=== PATIENT | male | born 1970 | race African-American/Black ===

== ENCOUNTER 2018-08-17 09:12 | Inpatient (IN) | payer MEDICAID, OTHER ==
[~2018-08-17] VITALS: Ht 193 cm; Wt 116.6 kg
[2018-08-17] MEDS ORDERED: SODIUM CHLORIDE 0.9% 1,000 ML IV ONE (09:29)
[2018-08-17] MEDS ORDERED: ALBUTEROL (0.083%) 2.5MG/3ML NEB HHN STA (09:29)
[2018-08-17] MEDS ORDERED: IPRATROPIUM BROMIDE (0.02%) 0.5MG/2.5ML NEB HHN STA (09:29)
[2018-08-17] MEDS ORDERED: MAGNESIUM 2 G PREMIX 50 ML IV STA (09:29)
[2018-08-17] MEDS ORDERED: METHYLPREDNISOLONE SOD SUCC 125 MG/2 ML VIAL IV STA (09:29)
[2018-08-17 09:44] LABS: BASOPHILS % 0.7 % (0.0-2.0); EOSINOPHILS % 6.4 % (0.0-5.0); HEMATOCRIT. 46.4 % (42.0-52.0); HEMOGLOBIN. 15.5 g/dL (14.0-18.0); LYMPHOCYTES % 51.5 % (20.0-50.0); MEAN CORPUSCULAR HEMOGLOBIN 29.6 pg (28.0-32.0); MEAN CORPUSCULAR VOLUME 88.4 fL (80.0-94.0); MEAN PLATELET VOLUME 7.7 fl (7.4-10.4); MONOCYTES % 7.7 % (2.0-8.0); NEUTROPHILS % 33.7 % (40.0-76.0); PLATELET 314 x1000/uL (130-400); RED BLOOD CELL COUNT 5.25 mill/uL (4.7-6.1); RED CELL DISTRIBUTION WIDTH 13.5 % (11.6-14.6)
[2018-08-17] MEDS ORDERED: SODIUM CHLORIDE 0.9% 1000ML BAG (SEPSIS BOLUS) IV ONE (09:45)
[2018-08-17 09:53] LABS: PARTIAL THROMBOPLASTIN TIME 23.6 sec (23.4-31.0); PROTHROMBIN TIME 10.2 sec (9.1-11.1)
[2018-08-17 09:54] LABS: CHLORIDE 108 mEq/L (98-107)
[2018-08-17] MEDS ORDERED: LEVOFLOXACIN 750MG PREMIX 150 ML IV ONE (10:30)
[2018-08-17 11:03] LABS: BG BILEVEL POS AIRWAY PRESSURE 15/5; BG CARBOXYHEMOGLOBIN 1.3 % (0.5-1.5); BG DEOXYHEMOGLOBIN 1.2 % (0.0-5.0); BG FRACTION INSPIRED OXYGEN 40; BG HCO3 ACT 25.5 mmol/L (22.0-26.0); BG METHEMOGLOBIN 0.4 % (0.0-1.5); BG OXYGEN SATURATION 98.8 % (92.0-98.5); BG OXYHEMOGLOBIN 97.1 % (94.0-97.0); BG PCO2 54.3 mmHg (35.0-45.0); BG PO2 154.8 mmHg (75.0-100.0); BG SAMPLE SITE RIGHT BRACHIAL; BG TOTAL HEMOGLOBIN 15.1 g/dL (12.0-18.0); BG VENT MODE MASK - BIPAP; BG VENT RATE 16 set
[2018-08-17] MEDS ORDERED: CLONIDINE 0.1MG TABLET PO PRN (16:15)
[2018-08-17] MEDS ORDERED: DOCUSATE SODIUM 100MG CAPSULE PO PRN (16:15)
[2018-08-17] MEDS ORDERED: IPRATROPIUM/ALBUTEROL 0.5-3(2.5)MG/3ML NEB INH PRN (16:15)
[2018-08-17] MEDS ORDERED: HYDROCODONE/ACETAMINOPHEN 5/325MG TABLET PO PRN (16:15)
[2018-08-17] MEDS ORDERED: ACETAMINOPHEN 650MG/20.3ML UDC GT PRN (16:15)
[2018-08-17] MEDS ORDERED: ACETAMINOPHEN 325MG TABLET PO PRN (16:15)
[2018-08-17] MEDS ORDERED: ONDANSETRON HCL 4MG/2ML INJ IV PRN (16:15)
[2018-08-17] MEDS ORDERED: DIPHENHYDRAMINE 50MG/ML VIAL IV PRN (16:15)
[2018-08-17] MEDS ORDERED: NA PHOS,M-B/NA PHOS,DI-BA ENEMA 118ML PR PRN (16:15)
[2018-08-17] MEDS ORDERED: ACETAMINOPHEN 650MG SUPP PR PRN (16:15)
[2018-08-17] MEDS ORDERED: GUAIFENESIN 200MG/10ML SUGAR FREE UDC PO PRN (16:15)
[2018-08-17] MEDS ORDERED: MAGNESIUM/ALUMINUM HYDROXIDE/SIMETHICONE 30ML UDC PO PRN (16:15)
[2018-08-17] MEDS ORDERED: IPRATROPIUM/ALBUTEROL 0.5-3(2.5)MG/3ML NEB HHN SCH (18:00)
[2018-08-17 19:48] LABS: CLARITY URINE CLEAR (CLEAR); COLOR URINE YELLOW (YELLOW); KETONES URINE NEGATIVE (NEGATIVE); LEUKOCYTE ESTERASE URINE NEGATIVE (NEGATIVE); NITRITE URINE NEGATIVE (NEGATIVE); OCCULT BLOOD URINE NEGATIVE (NEGATIVE); PROTEIN URINE NEGATIVE (NEGATIVE); SPECIFIC GRAVITY URINE 1.017 (1.005-1.030); UROBILINOGEN URINE 0.2 E.U./dL (0.2-1.0)
[2018-08-17 20:00] LABS: *BARBITURATES SCREEN URINE NEGATIVE (NEGATIVE); *BENZODIAZEPINES SCREEN URINE NEGATIVE (NEGATIVE); *COCAINE SCREEN URINE NEGATIVE (NEGATIVE); METHADONE URINE SCREEN NEGATIVE (NEGATIVE); OPIATES URINE SCREEN PRESUMTIVE POSITIVE (NEGATIVE)
[2018-08-17 20:01] LABS: *AMPHETAMINES SCREEN URINE NEGATIVE (NEGATIVE); CANNABINOID URINE SCREEN NEGATIVE (NEGATIVE); PHENCYCLIDINE URINE SCREEN NEGATIVE (NEGATIVE)
[2018-08-17] MEDS ORDERED: LORATADINE 10MG TABLET PO SCH (21:00)
[2018-08-17] MEDS ORDERED: ENOXAPARIN 40MG/0.4ML SYR SUBCUT NR (21:15)
[2018-08-17] MEDS ORDERED: METHYLPREDNISOLONE SOD SUCC 40 MG/ML VIAL IV NR (21:15)
[2018-08-17] MEDS ORDERED: MONTELUKAST SODIUM 10MG TABLET PO SCH (21:30)
[2018-08-17] MEDS ORDERED: SODIUM CHLORIDE 0.9% INJ 3ML FLUSH IVF NR (22:45)
[2018-08-17] MEDS ORDERED: FAMOTIDINE 20MG/2ML VIAL IV NR (22:45)
[2018-08-18] VITALS (11 sets, daily range): BP systolic 121–166; BP diastolic 43–98
[2018-08-18] MEDS: IPRATROPIUM/ALBUTEROL 0.5-3(2.5)MG/3ML NEB HHN PRN (02:12)
[2018-08-18 06:41] LABS: BASOPHILS % 0.2 % (0.0-2.0); HEMATOCRIT. 38.8 % (42.0-52.0); HEMOGLOBIN. 13.1 g/dL (14.0-18.0); LYMPHOCYTES % 11.1 % (20.0-50.0); MEAN CORPUSCULAR HEMOGLOBIN 29.4 pg (28.0-32.0); MEAN CORPUSCULAR VOLUME 87.3 fL (80.0-94.0); MEAN PLATELET VOLUME 8.1 fl (7.4-10.4); MONOCYTES % 8.7 % (2.0-8.0); PLATELET 271 x1000/uL (130-400); RED BLOOD CELL COUNT 4.44 mill/uL (4.7-6.1); RED CELL DISTRIBUTION WIDTH 13.3 % (11.6-14.6)
[2018-08-18 07:02] LABS: CHLORIDE 106 mEq/L (98-107)
[2018-08-18 07:10] LABS: LDL CHOLESTEROL 139 mg/dL (5-100)
[2018-08-18 07:11] LABS: HDL CHOLESTEROL 78 mg/dL (40-59)
[2018-08-18] MEDS: METHYLPREDNISOLONE SOD SUCC 40 MG/ML VIAL IV SCH ×3 (07:20→21:39)
[2018-08-18] MEDS: SODIUM CHLORIDE 0.9% INJ 3ML FLUSH IVF SCH ×3 (07:20→22:00)
[2018-08-18] MEDS: IPRATROPIUM/ALBUTEROL 0.5-3(2.5)MG/3ML NEB HHN SCH ×3 (08:11→20:55)
[2018-08-18] MEDS: ENOXAPARIN 30MG/0.3ML SYR SUBCUT SCH ×2 (09:00→21:09)
[2018-08-18] MEDS: FAMOTIDINE 20MG/2ML VIAL IV SCH ×2 (09:44→21:00)
[2018-08-18] MEDS: LORATADINE 10MG TABLET PO SCH (09:45)
[2018-08-18] MEDS: MONTELUKAST SODIUM 10MG TABLET PO SCH (17:55)
[2018-08-19] VITALS (7 sets, daily range): BP systolic 116–148; BP diastolic 54–84
[2018-08-19] MEDS: IPRATROPIUM/ALBUTEROL 0.5-3(2.5)MG/3ML NEB HHN SCH ×3 (02:43→20:13)
[2018-08-19] MEDS: SODIUM CHLORIDE 0.9% INJ 3ML FLUSH IVF SCH ×3 (06:00→22:00)
[2018-08-19] MEDS: METHYLPREDNISOLONE SOD SUCC 40 MG/ML VIAL IV SCH ×3 (06:47→21:00)
[2018-08-19] MEDS: FAMOTIDINE 20MG/2ML VIAL IV SCH ×2 (08:44→21:00)
[2018-08-19] MEDS: LORATADINE 10MG TABLET PO SCH (08:44)
[2018-08-19] MEDS: ENOXAPARIN 30MG/0.3ML SYR SUBCUT SCH ×2 (08:44→21:00)
[2018-08-19] MEDS: IPRATROPIUM/ALBUTEROL 0.5-3(2.5)MG/3ML NEB HHN PRN ×2 (12:50→16:40)
[2018-08-19] MEDS: MONTELUKAST SODIUM 10MG TABLET PO SCH (17:00)
[2018-08-20] MEDS: IPRATROPIUM/ALBUTEROL 0.5-3(2.5)MG/3ML NEB HHN SCH ×3 (01:57→15:03)
[2018-08-20 04:04] VITALS: BP 136/73
[2018-08-20] MEDS: SODIUM CHLORIDE 0.9% INJ 3ML FLUSH IVF SCH ×3 (06:00→14:39)
[2018-08-20 06:25] LABS: BASOPHILS % 0.4 % (0.0-2.0); HEMATOCRIT. 40.3 % (42.0-52.0); HEMOGLOBIN. 13.4 g/dL (14.0-18.0); LYMPHOCYTES % 9.4 % (20.0-50.0); MEAN CORPUSCULAR HEMOGLOBIN 29.4 pg (28.0-32.0); MEAN CORPUSCULAR VOLUME 88.1 fL (80.0-94.0); MEAN PLATELET VOLUME 8.4 fl (7.4-10.4); MONOCYTES % 4.2 % (2.0-8.0); PLATELET 271 x1000/uL (130-400); RED BLOOD CELL COUNT 4.58 mill/uL (4.7-6.1); RED CELL DISTRIBUTION WIDTH 13.6 % (11.6-14.6)
[2018-08-20] MEDS: METHYLPREDNISOLONE SOD SUCC 40 MG/ML VIAL IV SCH (07:26)
[2018-08-20 07:43] LABS: CHLORIDE 104 mEq/L (98-107)
[2018-08-20 08:00] VITALS: BP 147/91
[2018-08-20] MEDS: FAMOTIDINE 20MG/2ML VIAL IV SCH (08:56)
[2018-08-20] MEDS: ENOXAPARIN 30MG/0.3ML SYR SUBCUT SCH ×2 (08:56→09:00)
[2018-08-20] MEDS: LORATADINE 10MG TABLET PO SCH (08:56)
[2018-08-20 12:09] VITALS: BP 150/95
[2018-08-20 15:30] VITALS: BP 136/79
[2018-08-20 15:40] VITALS: BP 136/79
[2018-08-20] MEDS: MONTELUKAST SODIUM 10MG TABLET PO SCH (16:43)
[2018-08-20 20:00] VITALS: BP 135/80
== END 2018-08-20 19:30 | disposition home or self-care (01) | DRG 133 ==
LOC: ER 09:24 → 5EST 10:48 → EDBEDREQTM 10:50 → EDBEDREQ 10:50 → ENRESERVTM 08-18 00:35 → ENRESERVDT 08-18 00:35
PROVIDERS: ADMIT Family Medicine; ATTEND Family Medicine
PROC: 5A09357 Assistance with Respiratory Ventilation, Less than 24 Consecutive Hours, Continuous Positive Airway Pressure (ICD-10-PCS; principal; 2018-08-17)
PROC: 5A09357 Assistance with Respiratory Ventilation, Less than 24 Consecutive Hours, Continuous Positive Airway Pressure (ICD-10-PCS; 2018-08-20)
DX: J96.00 Acute respiratory failure, unspecified whether with hypoxia or hypercapnia (principal); D72.1 Eosinophilia; E87.2 Acidosis; J45.901 Unspecified asthma with (acute) exacerbation; E87.8 Other disorders of electrolyte and fluid balance, not elsewhere classified; E66.9 Obesity, unspecified; R73.9 Hyperglycemia, unspecified; E78.5 Hyperlipidemia, unspecified; T38.0X5A Adverse effect of glucocorticoids and synthetic analogues, initial encounter; Z82.49 Family history of ischemic heart disease and other diseases of the circulatory system; Z83.3 Family history of diabetes mellitus; Z87.891 Personal history of nicotine dependence; Z68.31 Body mass index [BMI] 31.0-31.9, adult; Y92.89 Other specified places as the place of occurrence of the external cause
CPT/HCPCS: 36415; 36600; 71045; 80048; 80061; 80305; 82375; 82805; 82962; 83605; 83880; 84145; 84484; 87804; 93005; 94640; 94660; 96365; 96375; 99291; J1650; J1956; J2920; J2930; J3475; J3490; J7030; J7611; J7620

== ENCOUNTER 2018-08-26 11:04 | Emergency (ER) | payer MEDICAID ==
[~2018-08-26] VITALS: Ht 193 cm; Wt 116.0 kg
[2018-08-26] MEDS ORDERED: SODIUM CHLORIDE 0.9% 1,000 ML IV ONE (11:18)
[2018-08-26] MEDS ORDERED: METHYLPREDNISOLONE SOD SUCC 125 MG/2 ML VIAL IV STA (11:18)
[2018-08-26] MEDS ORDERED: IPRATROPIUM BROMIDE (0.02%) 0.5MG/2.5ML NEB HHN STA (11:18)
[2018-08-26] MEDS ORDERED: ALBUTEROL (0.083%) 2.5MG/3ML NEB HHN STA (11:18)
[2018-08-26] MEDS ORDERED: MAGNESIUM 2 G PREMIX 50 ML IV ONE (11:30)
[2018-08-26 11:55] LABS: BASOPHILS % 0.9 % (0.0-2.0); EOSINOPHILS % 1.8 % (0.0-5.0); HEMATOCRIT. 42.8 % (42.0-52.0); HEMOGLOBIN. 14.5 g/dL (14.0-18.0); MEAN CORPUSCULAR HEMOGLOBIN 29.9 pg (28.0-32.0); MEAN CORPUSCULAR VOLUME 87.8 fL (80.0-94.0); MEAN PLATELET VOLUME 7.5 fl (7.4-10.4); MONOCYTES % 8.8 % (2.0-8.0); NEUTROPHILS % 59.5 % (40.0-76.0); PLATELET 300 x1000/uL (130-400); RED BLOOD CELL COUNT 4.87 mill/uL (4.7-6.1); RED CELL DISTRIBUTION WIDTH 13.7 % (11.6-14.6)
[2018-08-26 12:01] LABS: CHLORIDE 107 mEq/L (98-107)
[2018-08-26 14:00] VITALS: BP 128/81
== END 2018-08-26 14:43 | disposition home or self-care (01) ==
LOC: ER 11:04
DX: J45.901 Unspecified asthma with (acute) exacerbation (principal)
CPT/HCPCS: 36415; 71045; 80053; 84484; 85025; 93005; 94644; 96365; 96375; 99284; J2930; J3475; J7030; J7611

== ENCOUNTER 2018-10-10 22:24 | Emergency (ER) | payer MEDICAID ==
[~2018-10-10] VITALS: Ht 193 cm; Wt 118.0 kg
[2018-10-10] MEDS ORDERED: MAGNESIUM 2 G PREMIX 50 ML IV STA (23:23)
[2018-10-10] MEDS ORDERED: ALBUTEROL (0.083%) 2.5MG/3ML NEB HHN STA (23:23)
[2018-10-10] MEDS ORDERED: IPRATROPIUM BROMIDE (0.02%) 0.5MG/2.5ML NEB HHN STA (23:23)
[2018-10-10] MEDS ORDERED: METHYLPREDNISOLONE SOD SUCC 125 MG/2 ML VIAL IV STA (23:23)
[2018-10-11 02:48] VITALS: BP 135/87
== END 2018-10-11 02:48 | disposition home or self-care (01) ==
LOC: ER 22:24
DX: J45.901 Unspecified asthma with (acute) exacerbation (principal); R51 Headache
CPT/HCPCS: 71045; 96365; 96375; 99285; J2930; J3475; J7611

== ENCOUNTER 2018-10-19 02:48 | Inpatient (IN) | payer OTHER, MEDICAID ==
[2018-10-19] VITALS (8 sets, daily range): BP systolic 127–163; BP diastolic 70–96
[~2018-10-19] VITALS: Ht 193 cm; Wt 114.3 kg
[2018-10-19] MEDS: IPRATROPIUM/ALBUTEROL 0.5-3(2.5)MG/3ML NEB HHN SCH ×3 (01:05→20:18)
[2018-10-19] MEDS ORDERED: METHYLPREDNISOLONE SOD SUCC 125 MG/2 ML VIAL IV STA (03:05)
[2018-10-19] MEDS ORDERED: IPRATROPIUM BROMIDE (0.02%) 0.5MG/2.5ML NEB HHN STA ×2 (03:05→04:08)
[2018-10-19] MEDS ORDERED: SODIUM CHLORIDE 0.9% 1,000 ML IV ONE (03:05)
[2018-10-19] MEDS ORDERED: ONDANSETRON HCL 4MG/2ML INJ IV STA (03:05)
[2018-10-19] MEDS ORDERED: MAGNESIUM 2 G PREMIX 50 ML IV ONE (03:15)
[2018-10-19 03:16] LABS: BASOPHILS % 0.7 % (0.0-2.0); EOSINOPHILS % 10.9 % (0.0-5.0); HEMATOCRIT. 44.2 % (42.0-52.0); HEMOGLOBIN. 14.9 g/dL (14.0-18.0); LYMPHOCYTES % 46.9 % (20.0-50.0); MEAN CORPUSCULAR HEMOGLOBIN 29.8 pg (28.0-32.0); MEAN CORPUSCULAR VOLUME 88.4 fL (80.0-94.0); MEAN PLATELET VOLUME 7.4 fl (7.4-10.4); NEUTROPHILS % 30.5 % (40.0-76.0); PLATELET 318 x1000/uL (130-400); RED CELL DISTRIBUTION WIDTH 14.4 % (11.6-14.6)
[2018-10-19 03:22] LABS: CHLORIDE 107 mEq/L (98-107)
[2018-10-19] MEDS: ALBUTEROL (0.083%) 2.5MG/3ML NEB HHN SCH ×3 (03:30→04:30)
[2018-10-19] MEDS ORDERED: ALBUTEROL (0.083%) 2.5MG/3ML NEB HHN STA (04:08)
[2018-10-19 04:10] LABS: BG BASE EXCESS -3.7 mmol/L (-2.0-2.0); BG DEOXYHEMOGLOBIN 4.6 % (0.0-5.0); BG FRACTION INSPIRED OXYGEN 60; BG HCO3 ACT 24.9 mmol/L (22.0-26.0); BG METHEMOGLOBIN 0.3 % (0.0-1.5); BG OXYGEN SATURATION 95.3 % (92.0-98.5); BG OXYHEMOGLOBIN 94.1 % (94.0-97.0); BG PCO2 60.1 mmHg (35.0-45.0); BG PH 7.235 (7.350-7.450); BG PO2 92.2 mmHg (75.0-100.0); BG SAMPLE SITE RIGHT RADIAL; BG TOTAL HEMOGLOBIN 14.8 g/dL (12.0-18.0); BG VENT MODE MASK - SIMPLE
[2018-10-19] MEDS ORDERED: FLUT1DIS3 INH (12:49)
[2018-10-19] MEDS ORDERED: ALBU4TAB6 INH (12:49)
[2018-10-19] MEDS: METHYLPREDNISOLONE SOD SUCC 125 MG/2 ML VIAL IV SCH ×2 (13:37→21:41)
[2018-10-19] MEDS ORDERED: IPRATROPIUM/ALBUTEROL 0.5-3(2.5)MG/3ML NEB HHN PRN (15:15)
[2018-10-19] MEDS: LORATADINE 10MG TABLET PO SCH (16:27)
[2018-10-19] MEDS ORDERED: MONTELUKAST SODIUM 10MG TABLET PO SCH (17:00)
[2018-10-19] MEDS ORDERED: FAMOTIDINE 20MG TABLET PO SCH ×2 (21:00)
[2018-10-19] MEDS: GUAIFENESIN 600MG ER TABLET PO SCH (21:36)
[2018-10-19] MEDS: FLUTICASONE PROPIONATE 50MCG/SPRAY BOTTLE BOTHNSTRLS SCH (21:37)
[2018-10-19] MEDS: OMEPRAZOLE 20MG CAPSULE EXTENDED RELEASE PO SCH (21:38)
[2018-10-20] VITALS (10 sets, daily range): BP systolic 121–162; BP diastolic 66–99
[2018-10-20] MEDS: IPRATROPIUM/ALBUTEROL 0.5-3(2.5)MG/3ML NEB HHN SCH ×4 (01:11→14:54)
[2018-10-20] MEDS: METHYLPREDNISOLONE SOD SUCC 125 MG/2 ML VIAL IV SCH ×2 (06:03→13:27)
[2018-10-20] MEDS: OMEPRAZOLE 20MG CAPSULE EXTENDED RELEASE PO SCH (06:04)
[2018-10-20] MEDS: GUAIFENESIN 600MG ER TABLET PO SCH (09:09)
[2018-10-20] MEDS: LORATADINE 10MG TABLET PO SCH (09:09)
[2018-10-20] MEDS: FLUTICASONE PROPIONATE 50MCG/SPRAY BOTTLE BOTHNSTRLS SCH (09:10)
== END 2018-10-20 16:26 | disposition home or self-care (01) | DRG 133 ==
LOC: ER 02:48 → 5EST 04:49 → EDBEDREQ 04:55 → EDBEDREQSVC 04:55 → EDBEDREQTM 04:55 → ENRESERV 09:24
PROVIDERS: ADMIT Internal Medicine; ATTEND Internal Medicine
PROC: 5A09357 Assistance with Respiratory Ventilation, Less than 24 Consecutive Hours, Continuous Positive Airway Pressure (ICD-10-PCS; principal; 2018-10-19)
DX: J96.02 Acute respiratory failure with hypercapnia (principal); D72.1 Eosinophilia; E87.2 Acidosis; J45.902 Unspecified asthma with status asthmaticus; E66.9 Obesity, unspecified; Z68.30 Body mass index [BMI] 30.0-30.9, adult
CPT/HCPCS: 36415; 36600; 71045; 82375; 82805; 83605; 83880; 84484; 93005; 94640; 94644; 94660; 96365; 96375; 99285; J2405; J2930; J3475; J7030; J7040; J7611; J7620

== ENCOUNTER 2019-01-05 23:09 | Emergency (ER) | payer MEDICAID ==
[~2019-01-05] VITALS: Ht 193 cm; Wt 59.2 kg
[~2019-01-05 23:09] MED LIST: ALBU4TAB6 INH; FLUT1DIS3 INH
[2019-01-05] MEDS ORDERED: ALBUTEROL (0.083%) 2.5MG/3ML NEB HHN NR (23:31)
[2019-01-05] MEDS ORDERED: IPRATROPIUM BROMIDE (0.02%) 0.5MG/2.5ML NEB HHN NR (23:31)
[2019-01-05] MEDS ORDERED: METHYLPREDNISOLONE SOD SUCC 125 MG/2 ML VIAL IM NR (23:31)
[2019-01-06 02:00] VITALS: BP 135/90
== END 2019-01-06 02:10 | disposition home or self-care (01) ==
LOC: ER 23:09
DX: J45.901 Unspecified asthma with (acute) exacerbation (principal); J20.9 Acute bronchitis, unspecified; Z98.890 Other specified postprocedural states; Z79.899 Other long term (current) drug therapy
CPT/HCPCS: 71045; 94640; 96372; 99283; J2930; J7611; Z7610

== ENCOUNTER 2019-01-07 09:15 | Emergency (ER) | payer MEDICAID ==
[~2019-01-07] VITALS: Ht 180.3 cm; Wt 75.0 kg
[2019-01-07] MEDS ORDERED: ALBUTEROL (0.5%) 2.5MG/0.5ML NEB HHN ONE (09:30)
[2019-01-07] MEDS ORDERED: PREDNISONE 20MG TABLET PO ONE (09:30)
[2019-01-07] MEDS ORDERED: MAGNESIUM 2 G PREMIX 50 ML IV STA (09:41)
[2019-01-07] MEDS ORDERED: ALBUTEROL (0.083%) 2.5MG/3ML NEB HHN STA (09:41)
[2019-01-07] MEDS ORDERED: IPRATROPIUM BROMIDE (0.02%) 0.5MG/2.5ML NEB HHN STA (09:41)
[2019-01-07] MEDS ORDERED: METHYLPREDNISOLONE SOD SUCC 125 MG/2 ML VIAL IV STA (09:41)
[2019-01-07 12:44] VITALS: BP 120/80
== END 2019-01-07 13:25 | disposition home or self-care (01) ==
LOC: ER 09:15
DX: J45.901 Unspecified asthma with (acute) exacerbation (principal); Z98.890 Other specified postprocedural states
CPT/HCPCS: 71045; 94644; 96365; 99285; J3475; J7512; J7611; Z7610; J2930

== ENCOUNTER 2019-01-10 00:13 | Emergency (ER) | payer MEDICAID ==
[~2019-01-10] VITALS: Ht 193 cm; Wt 118.0 kg
[2019-01-10] MEDS ORDERED: ALBUTEROL (0.083%) 2.5MG/3ML NEB HHN STA (00:29)
[2019-01-10] MEDS ORDERED: PREDNISONE 20MG TABLET PO STA (00:29)
[2019-01-10] MEDS ORDERED: IPRATROPIUM BROMIDE (0.02%) 0.5MG/2.5ML NEB HHN STA (00:29)
[2019-01-10] MEDS ORDERED: MAGNESIUM 2 G PREMIX 50 ML IV ONE (00:30)
[2019-01-10 02:15] VITALS: BP 129/89
== END 2019-01-10 02:31 | disposition home or self-care (01) ==
LOC: ER 00:13
DX: J45.909 Unspecified asthma, uncomplicated (principal)
CPT/HCPCS: 96365; 99283; J3475; J7512; J7611